=== PATIENT | male | born 1940 | race Caucasian/White ===

== ENCOUNTER 2020-10-03 17:31 | Inpatient (IN) | payer MEDICARE, BC ==
[~2020-10-03] VITALS: Ht 170.2 cm; Wt 42.6 kg
--- NOTE | 2020-10-03 17:46 | NUR ---
bel from [facility] for noted o2 desaturation. PT NON VERBAL, EYES OPEN ONLY. O2 SAT 76% RA. PLACED ON HI FLOW O2 15L PER ERMD, O2 SAT 100%. PLACED ON ROLL CARRIER, SR. WILL CONT TO MONITOR.
--- NOTE | 2020-10-03 18:02 | NUR ---
PER ALMA RN OPEN SOAPER TENDER, LAST COVID TEST AT [facility] WAS 10/01/20Wednesday AND THE RESULT WAS NEGATIVE.
[2020-10-03] MEDS ORDERED: ALBU2.5V38 IH (18:06)
[2020-10-03] MEDS ORDERED: GUAI5SYR PO (18:06)
[2020-10-03] MEDS ORDERED: ACET325T53 PO (18:06)
[2020-10-03] MEDS ORDERED: LORA-259 PO (18:06)
[2020-10-03] MEDS ORDERED: OLAN2.5T3 PO (18:06)
[2020-10-03] MEDS ORDERED: CALC1TAB30 PO (18:06)
[2020-10-03] MEDS ORDERED: MAGN400O6 PO (18:06)
[2020-10-03] MEDS ORDERED: NA P133E RC (18:06)
[2020-10-03] MEDS ORDERED: CLON0.1T PO (18:06)
[2020-10-03] MEDS ORDERED: TAMS-12 PO (18:06)
[2020-10-03] MEDS ORDERED: MAG-55 PO (18:06)
[2020-10-03] MEDS ORDERED: TRAZ-182 PO (18:06)
[2020-10-03 18:08] LABS: BASOPHILS # (AUTO) 0.1 /CMM (0.0-0.2); BASOPHILS % (AUTO) 0.6 % (0.0-2.0); EOSINOPHILS % (AUTO) 1.7 % (0.0-6.0); HEMATOCRIT 47 % (39-51); LYMPHOCYTES % (AUTO) 23.6 % (20.0-44.0); MEAN CORPUSCULAR HGB CONC 32 g/dl (31.0-36.0); MEAN CORPUSCULAR VOLUME 99 fL (80-96); MONOCYTES # (AUTO) 0.7 /CMM (0.1-1.30); MONOCYTES % (AUTO) 7.8 % (2.0-12.0); NEUTROPHILS # (AUTO) 5.8 /CMM (1.8-8.9); NEUTROPHILS % (AUTO) 66.3 % (43.0-81.0); PLATELET COUNT (AUTO) 152 /CMM (150-450); WHITE BLOOD COUNT (AUTO) 8.7 K/uL (4.3-11.0)
[2020-10-03 18:25] LABS: CALCIUM, SERUM 10.3 mg/dL (8.5-10.1); CARBON DIOXIDE 23 mmol/L (21-32); CHLORIDE 117 mmol/L (98-107); CREATININE 2.5 mg/dL (0.6-1.3); GLUCOSE 110 mg/dL (74-106); POTASSIUM 4.3 mmol/L (3.5-5.1); SODIUM SERUM 153 mmol/L (136-145); UREA NITROGEN, BLOOD 75 mg/dL (7-18)
[2020-10-03 18:30] LABS: ALANINE AMINOTRANSFERASE 30 U/L (12-78); ALBUMIN 4.2 g/dL (3.4-5.0); ALKALINE PHOSPHATASE 93 U/L (46-116); ASPARTATE AMINOTRANSFERASE 25 U/L (15-37); B-TYPE NATRIURETIC PEPTIDE 143 PG/ML (0-125); BILIRUBIN,TOTAL 0.4 mg/dL (0.2-1.0); TOTAL PROTEIN, SERUM 9.3 g/dL (6.4-8.2)
[2020-10-03 18:48] LABS: FERRITIN 930 ng/mL (8-388)
[2020-10-03] MEDS ORDERED: VANCOMYCIN 1 GM in IV D5W 250 ML IV ONE (19:00)
[2020-10-03] MEDS ORDERED: IV NS 0.9% 500 ML BAG IV ONE (19:00)
[2020-10-03] MEDS ORDERED: CEFEPIME 1 GM in IV D5W 50 ML IV ONE (19:00)
[2020-10-03] MEDS ORDERED: IV NS 0.9% 1,000 ML IV ONE (19:00)
--- NOTE | 2020-10-03 19:04 | NUR ---
BED 253
[2020-10-03 19:11] LABS: BILIRUBIN,URINE MODERATE (NEGATIVE); BLOOD, URINE Large Ery/uL (NEGATIVE); COLOR,URINE DARK YELLOW (YELLOW); LEUKOCYTE ESTERASE ,URINE Trace (NEGATIVE); NITRITE, URINE Negative (NEGATIVE); PROTEIN,URINE 100 mg/dl (NEGATIVE); UGLUCOSE Negative (NEGATIVE); UROBILINOGEN,URINE 0.2 EU/dL (0.2)
[2020-10-03 19:17] LABS: RBC,URINE 51-80 /HPF (0-2)
[2020-10-03 19:18] LABS: BACTERIA,URINE Moderate /HPF (None Seen); SQUAMOUS EPITHELIAL CELL,UR None Seen /HPF (None Seen)
[2020-10-03] MEDS ORDERED: ZOLPIDEM TARTRATE 5 MG TABLET PO PRN (19:30)
[2020-10-03] MEDS ORDERED: ONDANSETRON HCL/PF 4 MG/2 ML VIAL IVP PRN (19:30)
[2020-10-03] MEDS ORDERED: Z GUARD REMEDY 2 OZ OINT TP PRN (19:30)
[2020-10-03] MEDS ORDERED: ACETAMINOPHEN 325 MG TABLET PO PRN (19:30)
[2020-10-03] MEDS ORDERED: HEPARIN SODIUM, PORCINE 5000 UNITS/1 ML VIAL SQ ONE (19:30)
--- NOTE | 2020-10-03 19:44 | NUR ---
REPORT GIVEN TO CYNTHIA PRAJAPATI FOR LAURA.
[2020-10-03 19:57] LABS: ABG BASE EXCESS -6.2 mmol/L; ABG OXYGEN SATURATION 98.6 % (92.0-98.5); ABG PCO2 32.6 mmHg (35.0-45.0); ABG PH 7.366 (7.350-7.450); AaDO2 108.9 mmHg; COHb 0.2 % (0.5-1.5); MetHb 0.4 % (0.0-1.5); VENT MODE, BG 40L / 55%
[2020-10-03 21:00] VITALS: BP 103/78
--- NOTE | 2020-10-03 21:00 | NUR ---
EARLY MORNING BABYSITTER RCD PT FROM ER [facility] OVERFLOW R/O COVID; DX SEPSIS. NSR ON MONITOR. ON O2 3L NC. PT IS NONVERBAL RESISTANT TO CARE AT TIMES. SACRAL REDNESS AND SCABS TO LEFT FOREARM AND BLE. PENDING WOUND CARE CONS.
[2020-10-03] MEDS: IV NS 0.9% 1,000 ML IV PRN (21:26)
[2020-10-03 22:00] VITALS: BP 97/53
[2020-10-03] MEDS ORDERED: CEFTRIAXONE 1 G VIAL ONE (22:04)
[2020-10-03] MEDS: CEFTRIAXONE 1 G in IV D5W 50 ML IV SCH (22:06)
[2020-10-03 22:09] LABS: BILIRUBIN,DIRECT 0.1 mg/dL (0.0-0.2)
--- NOTE | 2020-10-03 22:30 | NUR ---
PACKAGE DYER PT TO REMAIN NPO D/T DYSPHAGIA; PENDING SWALLOW EVAL.
[2020-10-03 23:00] VITALS: BP 97/53
[2020-10-03] MEDS: BLOOD SUGAR DIAGNOSTIC 1 EACH STRIP IN SCH (23:29)
[2020-10-03] MEDS ORDERED: ALBUTEROL FS 2.5 MG/3 ML VIAL.NEB IH PRN (23:30)
[2020-10-03] MEDS ORDERED: DEXTROSE 50%-WATER 50 ML DISP.SYRIN IV PRN (23:30)
[2020-10-03] MEDS: INSULIN REGULAR, HUMAN 100 UNIT/ML 3 ML VIAL SQ PRN (23:45)
[2020-10-04] VITALS (25 sets, daily range): BP systolic 94–160; BP diastolic 29–98
[2020-10-04] MEDS: BLOOD SUGAR DIAGNOSTIC 1 EACH STRIP IN SCH ×4 (05:14→23:24)
[2020-10-04 05:50] LABS: BASOPHILS % (AUTO) 0.4 % (0.0-2.0); EOSINOPHILS % (AUTO) 5.6 % (0.0-6.0); HEMATOCRIT 33 % (39-51); LYMPHOCYTES # (AUTO) 2.2 /CMM (0.8-4.8); LYMPHOCYTES % (AUTO) 25.3 % (20.0-44.0); MEAN CORPUSCULAR HGB CONC 33 g/dl (31.0-36.0); MEAN CORPUSCULAR VOLUME 95 fL (80-96); MONOCYTES # (AUTO) 0.9 /CMM (0.1-1.30); MONOCYTES % (AUTO) 10.2 % (2.0-12.0); NEUTROPHILS # (AUTO) 5.1 /CMM (1.8-8.9); NEUTROPHILS % (AUTO) 58.5 % (43.0-81.0); PLATELET COUNT (AUTO) 105 /CMM (150-450); RED BLOOD CELL COUNT(AUTO) 3.49 MIL/uL (4.5-6.0); WHITE BLOOD COUNT (AUTO) 8.8 K/uL (4.3-11.0)
[2020-10-04 06:07] LABS: CHOLESTEROL 152 mg/dL (<200); HDL CHOLESTEROL 39 mg/dL (40-60); LDL 96 mg/dL (0-99); TRIGLYCERIDES 83 mg/dL (30-150)
[2020-10-04 06:11] LABS: CALCIUM, SERUM 8.4 mg/dL (8.5-10.1); CARBON DIOXIDE 21 mmol/L (21-32); CHLORIDE 123 mmol/L (98-107); GLUCOSE 82 mg/dL (74-106); MAGNESIUM 2.5 mg/dL (1.8-2.4); PHOSPHORUS 3.5 mg/dL (2.5-4.9); POTASSIUM 3.9 mmol/L (3.5-5.1); SODIUM SERUM 154 mmol/L (136-145); UREA NITROGEN, BLOOD 64 mg/dL (7-18)
[2020-10-04] MEDS: IV NS 0.9% 1,000 ML IV PRN (06:30)
[2020-10-04] MEDS: HYDROCORTISONE SOD SUCCINATE 100 MG/2 ML VIAL IV SCH ×3 (06:30→21:15)
[2020-10-04 06:55] LABS: THYROID STIMULATING HORMONE 3.653 uIU/mL (0.358-3.74)
--- NOTE | 2020-10-04 07:30 | NUR ---
LEGAL RESEARCHER OPENING NOTES RECEIVED PT IN BED, NON VERBAL, BUT ABLE TO RESPOND TO VERBAL AND TACTILE STIMULI BY EYE MOVEMENT. ON 3LPM VIA NC WITH O2 SAT AT 98%. NOT IN ANY ACUTE DISTRESS AT THIS TIME. ON TELE MONITOR WITH READING OF NSR AND HR IN 50s-60s. PT IS NPO DUE TO DYSPHAGIA, AWAITING FOR SWALLOW EVAL. SL IV#18 TO RIGHT WRIST AND SL IV#18 TO LEFT AC, INTACT AND FLUSHED. MD WITH ORDERS TO DC PREVIOUS IV INFUSION, WITH NEW ORDERS OF 0.45 NS RUNNING AT 100ML/HR. SAFETY PRECAUTION OBSERVED. BED KEPT IN LOWEST POSITION. COVID PCR RESULTS PENDING. WILL CONTINUE TO MONITOR.
--- NOTE | 2020-10-04 07:54 | NUR ---
WOUND CARE CONSULT: REVIEWED CHART, NURSING DOCUMENTATION AND PHOTOS WHICH INDICATE SACRAL SCARRING AND DRY SCABS TO EXTREMITIES, PRESENT ON ADMISSION. PT IS VERY THIN AND BONY. RECOMMENDATIONS MADE FOR SKIN PROTECTION. DISCUSSED WITH NURSING STAFF. WILL SEE PRN. ELIAS IN AGREEMENT WITH PLAN OF CARE.
[2020-10-04] MEDS: IV 1/2NS 1000 ML 1,000 ML IV SCH ×2 (08:43→16:36)
--- NOTE | 2020-10-04 11:30 | NUR ---
SENIOR WAREHOUSE CLERK NOTES DR HESTER INFORMED OF RD RECOMMENDATIONS TO START NGT OF GLUCERNA 1.2 VALERIY @ 15ML/HR, AGREED WITH ORDERS NOTED / CARRIED OUT.
[2020-10-04] MEDS ORDERED: GLUCERNA 1.2 1,000 ML BOTTLE NG PRN ×2 (12:00→12:36)
--- NOTE | 2020-10-04 12:29 | NUR ---
WOOD CARVER HAND NOTES 14F NGT INSERTED.
--- NOTE | 2020-10-04 12:36 | NUR ---
MEDICAL BILLING AND CODING SPECIALIST NOTES PT ATTEMPTING TO PULL OUT NGT AFTER PLACEMENT, BILATERAL HAND MITTENS PLACED ORDERED, WILL CONTINUE TO MONITOR SKIN INTEGRITY.
--- NOTE | 2020-10-04 15:40 | NUR ---
ENDORSED TO SIVA SANDERS) FOR LAURA.
--- NOTE | 2020-10-04 16:20 | NUR ---
pt is resting in the bed, alert, does not follows commands, nonverbal, SR, SB, sat well on 3L 02, NG to feeding tolerates well, no BM, v/s stable, no pain, pt cleaned, changed and repositioned.
--- NOTE | 2020-10-04 19:30 | NUR ---
SUPERVISOR PIGMENT MAKING RCD PT W/DX SEPSIS; PT IS ALERT, NONVERBAL; RESISTANT TO CARE SOFT MITTENS IN PLACE TO PREVENT PULLING OF NG TUBE AND IV LINES. PT NSR ON MONITOR. SACRAL SCARRING W/MEPILEX IN PLACE. RIGHT NARE NG TUBE W/GLUCERNA 1.2 @ 15 ML/HR.
[2020-10-04] MEDS: CEFTRIAXONE 1 G in IV D5W 50 ML IV SCH (20:02)
[2020-10-04] MEDS: TAMSULOSIN 0.4 MG CAP.SR.24H PO SCH (21:15)
[2020-10-04] MEDS: INSULIN REGULAR, HUMAN 100 UNIT/ML 3 ML VIAL SQ PRN (23:24)
[2020-10-05] VITALS (45 sets, daily range): BP systolic 69–119; BP diastolic 27–89
[2020-10-05] MEDS: IV 1/2NS 1000 ML 1,000 ML IV SCH (03:10)
[2020-10-05 04:23] LABS: BASOPHILS % (AUTO) 0.1 % (0.0-2.0); HEMATOCRIT 35 % (39-51); HEMOGLOBIN 11.4 g/dL (13.5-17.5); LYMPHOCYTES % (AUTO) 12.1 % (20.0-44.0); MEAN CORPUSCULAR HGB CONC 33 g/dl (31.0-36.0); MEAN CORPUSCULAR VOLUME 96 fL (80-96); MONOCYTES # (AUTO) 0.3 /CMM (0.1-1.30); MONOCYTES % (AUTO) 3.1 % (2.0-12.0); NEUTROPHILS % (AUTO) 84.7 % (43.0-81.0); PLATELET COUNT (AUTO) 104 /CMM (150-450); RED BLOOD CELL COUNT(AUTO) 3.61 MIL/uL (4.5-6.0); WHITE BLOOD COUNT (AUTO) 8.3 K/uL (4.3-11.0)
[2020-10-05 04:47] LABS: ALANINE AMINOTRANSFERASE 23 U/L (12-78); ALBUMIN 2.8 g/dL (3.4-5.0); ALKALINE PHOSPHATASE 68 U/L (46-116); ASPARTATE AMINOTRANSFERASE 26 U/L (15-37); BILIRUBIN,TOTAL 0.2 mg/dL (0.2-1.0); CALCIUM, SERUM 8.7 mg/dL (8.5-10.1); CARBON DIOXIDE 18 mmol/L (21-32); CHLORIDE 118 mmol/L (98-107); CREATININE 1.4 mg/dL (0.6-1.3); GLUCOSE 89 mg/dL (74-106); MAGNESIUM 2.5 mg/dL (1.8-2.4); PHOSPHORUS 3.5 mg/dL (2.5-4.9); SODIUM SERUM 150 mmol/L (136-145); TOTAL PROTEIN, SERUM 6.6 g/dL (6.4-8.2); UREA NITROGEN, BLOOD 59 mg/dL (7-18)
[2020-10-05] MEDS: HYDROCORTISONE SOD SUCCINATE 100 MG/2 ML VIAL IV SCH (05:15)
[2020-10-05] MEDS: BLOOD SUGAR DIAGNOSTIC 1 EACH STRIP IN SCH ×4 (05:15→23:24)
--- NOTE | 2020-10-05 08:19 | NUR ---
received pt from awake overnight counselor, alert, nonverbal, does not follow commands, SB, sat well on 3L 02, NG to feeding tolerates well, v/s stable, no pain, pt turned and repositioned.
[2020-10-05] MEDS: methylPREDNISolone SOD SUCC 40 MG/ML VIAL IV SCH (11:21)
[2020-10-05] MEDS: AZITHROMYCIN 500 MG in IV D5W 250 ML IV SCH (11:21)
[2020-10-05] MEDS: HYDROCODONE/APAP 5/325MG TABLET PO PRN ×2 (11:27→20:03)
--- NOTE | 2020-10-05 13:00 | NUR ---
pt SBP 77- 85, doctor Lili at the bedside, orders received and carried out.
[2020-10-05] MEDS: IV 1/2NS 1000 ML 1,000 ML IV PRN ×2 (13:51→20:05)
--- NOTE | 2020-10-05 16:19 | NUR ---
pt is resting in the bed, alert, non verbal, does not follow commands, SR, RA sat well, tolerates feeding, v/s stable, no pain, pt cleaned, changed and repositioned.
--- NOTE | 2020-10-05 19:00 | NUR ---
RN NOTE RECEIVED PATIENT IN BED, WITH HOB ELEVATED TO 30 DEGREES, OPENS EYES, NON VERBAL. PATIENT IN NO S/SX OF ACUTE DISTRESS AT THIS TIME. PATIENT'S BREATHING IS EVEN AND UNLABORED, SATURATING >95% ON ROOM AIR. PATIENT ON BEDSIDE MONITOR READING SR, HR IS 117. NOTED NASOGASTRIC TUBE AT RIGHT NARE, PLACEMENT WAS CHECKED BY AUSCULTATION, AND ASPIRATION OF GASTRIC CONTENTS, MINIMAL RESIDUAL NOTED, WITH TUBE FEEDING OF GLUCERNA 1.2 REGULATED AT 15 ML/HR. NOTED IV SITE AT LAC G18, PATENT AND FLUSHING WELL, NO S/S OF INFECTION OR INFILTRATION WITH 0.45 NS INFUSING AT 100 ML/HR. SAFETY MEASURES IMPLEMENTED PER PROTOCOL. PATIENT BED ALARM IS ON. HEAD OF BED ELEVATED. BED IS LOCKED, IN LOWEST POSITION AND SIDE RAILS UP. CALL LIGHT WITHIN REACH OF THE PATIENT. WILL CONTINUE TO MONITOR AND REASSESS FOR ANY CHANGES.
[2020-10-05] MEDS: CEFTRIAXONE 1 G in IV D5W 50 ML IV SCH (19:46)
[2020-10-05] MEDS: TAMSULOSIN 0.4 MG CAP.SR.24H PO SCH (21:41)
--- NOTE | 2020-10-05 22:58 | NUR ---
RN NOTE NOTED SBP AT 80'S, TEMPORARILY HELD FEEDING. PLACED PATIENT ON [place] POSITION. RECHECKED BP, 110/66. JANITORIAL SERVICES SUPERVISOR MADE AWARE.
--- NOTE | 2020-10-05 23:23 | NUR ---
RN NOTE PATIENT ASLEEP IN BED, IN STABLE CONDITION. ENDORSED TO JOSE MARIE FOR CONTINUATION OF CARE.
[2020-10-06] VITALS (14 sets, daily range): BP systolic 82–168; BP diastolic 43–96
[2020-10-06 04:35] LABS: EOSINOPHILS % (AUTO) 4.2 % (0.0-6.0); HEMATOCRIT 31 % (39-51); HEMOGLOBIN 10.1 g/dL (13.5-17.5); LYMPHOCYTES # (AUTO) 0.4 /CMM (0.8-4.8); LYMPHOCYTES % (AUTO) 2.9 % (20.0-44.0); MEAN CORPUSCULAR HGB CONC 33 g/dl (31.0-36.0); MEAN CORPUSCULAR VOLUME 96 fL (80-96); MONOCYTES # (AUTO) 0.4 /CMM (0.1-1.30); MONOCYTES % (AUTO) 2.8 % (2.0-12.0); NEUTROPHILS # (AUTO) 12.4 /CMM (1.8-8.9); NEUTROPHILS % (AUTO) 90.1 % (43.0-81.0); PLATELET COUNT (AUTO) 85 /CMM (150-450); RED BLOOD CELL COUNT(AUTO) 3.22 MIL/uL (4.5-6.0); WHITE BLOOD COUNT (AUTO) 13.7 K/uL (4.3-11.0)
[2020-10-06 04:55] LABS: CALCIUM, SERUM 8.1 mg/dL (8.5-10.1); CREATININE 1.1 mg/dL (0.6-1.3); MAGNESIUM 2.2 mg/dL (1.8-2.4); PHOSPHORUS 3.3 mg/dL (2.5-4.9)
[2020-10-06 05:21] LABS: LYMPHOCYTES % (MANUAL) 10 % (16-48); MONOCYTES % (MANUAL) 3 % (0-11.0); NEUTROPHILS % (MANUAL) 87 (42-76)
[2020-10-06] MEDS: IV 1/2NS 1000 ML 1,000 ML IV PRN ×2 (05:57→18:31)
--- NOTE | 2020-10-06 08:00 | NUR ---
BALE BREAKER OPERATOR NOTE PATIENT IN BED NONVERBAL ,ON RA NO SOB NOTED , ON PO STATUS WITH N G TUBE RT NARE IN PLACE, PLACEMENT CHECKED BY AUSCULTATION OF AIR , NO RESIDUAL NOTED AT THIS TIME ,ON N G TUBE FEEDING ORDERED AT 15 ML PER HOUR ,KEEP HOB ELEVATED AT ALL TIME, LT AC HL INTACT AND FLUSHED WELL ,BED IN LOWEST AND LOCKED POSITION, WITH MITTENS RESTRAIN ,STILL TRYING TO REMOVE ALL LINES AND TUBES , WILL CONT TO MONITOR ,BED IN LOWEST AND LOCKED POSITION ,SAFETY MEASURE OBSERVED
[2020-10-06] MEDS: methylPREDNISolone SOD SUCC 40 MG/ML VIAL IV SCH (08:37)
[2020-10-06] MEDS: BLOOD SUGAR DIAGNOSTIC 1 EACH STRIP IN SCH ×4 (08:37→23:21)
[2020-10-06] MEDS ORDERED: ENOXAPARIN SODIUM 40 MG/0.4 ML DISP.SYRIN SQ SCH (09:00)
--- NOTE | 2020-10-06 10:00 | NUR ---
agriculture sales account manager note frequent reposition done ,keep clean dry ,cant give Lovenox due to low platelets, dr cleaning notified ,ok to d\c will f\u
[2020-10-06] MEDS: AZITHROMYCIN 500 MG in IV D5W 250 ML IV SCH (10:22)
[2020-10-06] MEDS: INSULIN REGULAR, HUMAN 100 UNIT/ML 3 ML VIAL SQ PRN (11:46)
--- NOTE | 2020-10-06 12:00 | NUR ---
registered nurse cardiovascular icu note per dietary change to 30 ml per hour , Glucerna via ng tube ,order carried our
--- NOTE | 2020-10-06 13:38 | NUR ---
director nicu note Kamala Pompa at bedside ,patient condition updated
[2020-10-06] MEDS ORDERED: GLUCERNA 1.2 1,000 ML BOTTLE NG PRN (13:43)
--- NOTE | 2020-10-06 14:20 | NUR ---
MACHINE SNELLER NOTE T 95.8 RN POOL CLEANER NIKKI ESPINOSA AWARE OK TO PLACE BARON HUGGER BLANKET PRN
[2020-10-06] MEDS ORDERED: IV NS 0.9% 500 ML IV ONE (16:00)
--- NOTE | 2020-10-06 16:19 | NUR ---
DIE PRESSER NOTE CALLED NIKKI MARIE TAXI SERVICER NOTIFIED BP 82/45 WITH ORDER 500 ML BOLUS OF NS ORDER CARRIED OUT, ONWARM BLANKET STILL T 95.0, WILL MONITOR PER ORDER NIKKI MARIE NP PATIENT DNR \DNI STATUS
--- NOTE | 2020-10-06 17:50 | NUR ---
RN NOTES RECEIVED PT FROM SHIPPER MAR VIA BED, PT IS AWAKE, NON VERBAL, NO SIGN OF PAIN, NOT IN DISTRESS, NG IN PLACE, BEAR HUGGER IN PLACE, IV FLUIDS AND GT FEEDING INFUSING WELL, KEPT WARM AND COMFORTABLE IN BED.
--- NOTE | 2020-10-06 17:50 | NUR ---
agricultural adviser note latest bp after bolus 500 ml of ns 105\76
--- NOTE | 2020-10-06 18:00 | NUR ---
agriculture laboratory technician note transferred to [facility] with stable condition unit room 204 ,report given to natalie rodarte ,
--- NOTE | 2020-10-06 19:30 | NUR ---
MS RN OPENING NOTE RECEIVED PATIENT ON ISOLATION FOR R/O COVID. PATIENT IS RESTING IN BED. PATIENT IS NONVERBAL. TOLERATING ROOM AIR. RESPIRATIONS ARE EVEN AND UNLABORED. NO S/S SOB NOTED. NO S/S PAIN AT THIS TIME. EXTERNAL TELE MONITOR READS SINUS RODRÍGUEZ HR 54. IN NO APPARENT DISTRESS. IV ACCESS IN LAC#18 RUNNING 1/2NS@100. RIGHT NARE NGTUBE NOTED, 68 CM. RUNNING GLUCERNA 1.2@30ML/HR. PATIENT ALSO HAS BARON HUGGER ON. TEMP CURRENTLY 97.7. PATIENT ALSO HAS BILATERAL SOFT MITTENS. BED IS LOW AND LOCKED, HOB ELEVATED IN HIGH FOWLERS, SIDE RIAL SUP X3. CALL LIGHT WITHIN REACH. WILL CONTINUE TO MONITOR.
[2020-10-06] MEDS: CEFTRIAXONE 1 G in IV D5W 50 ML IV SCH (20:09)
[2020-10-06] MEDS: TAMSULOSIN 0.4 MG CAP.SR.24H PO SCH (21:50)
[2020-10-07] VITALS: BP 124/56
[2020-10-07] MEDS: IV 1/2NS 1000 ML 1,000 ML IV PRN ×2 (05:08→18:45)
[2020-10-07] MEDS: BLOOD SUGAR DIAGNOSTIC 1 EACH STRIP IN SCH ×3 (05:47→17:37)
[2020-10-07 06:31] LABS: HEMATOCRIT 33 % (39-51); HEMOGLOBIN 10.9 g/dL (13.5-17.5); LYMPHOCYTES # (AUTO) 1.1 /CMM (0.8-4.8); LYMPHOCYTES % (AUTO) 9.8 % (20.0-44.0); MEAN CORPUSCULAR HGB CONC 33 g/dl (31.0-36.0); MEAN CORPUSCULAR VOLUME 94 fL (80-96); MONOCYTES # (AUTO) 0.7 /CMM (0.1-1.30); MONOCYTES % (AUTO) 6.4 % (2.0-12.0); NEUTROPHILS # (AUTO) 9.6 /CMM (1.8-8.9); NEUTROPHILS % (AUTO) 83.8 % (43.0-81.0); PLATELET COUNT (AUTO) 82 /CMM (150-450); RED BLOOD CELL COUNT(AUTO) 3.48 MIL/uL (4.5-6.0); WHITE BLOOD COUNT (AUTO) 11.4 K/uL (4.3-11.0)
--- NOTE | 2020-10-07 06:39 | NUR ---
MS RN CLOSING NOTE ON ISOLATION FOR R/O COVID 19. CURRENTLY RESTING IN BED. NONVERBAL. TOLERATING ROOM AIR. NO S/S RESP DISTRESS. NO S/S PAIN NOTED. NO DISTRESS. IV ACCESS MAINTAINED IN LAC#18 RUNNING 1/2NS@100ML/HR. MAINTAINED RIGHT NARE NG TUBE, 68 CM RUNNING GLUCERNA 1.2@30ML/HR. BILATERAL SOFT MITTENS MAINTAINED, GOOD CAP REFILL, NO REDNESS. BED REMAINS LOW AND LOCKED, HOB ELEVATED IN HIGH FOWLERS, SIDE RIAL SUP X3. CALL LIGHT WITHIN REACH. WILL ENDORSE TO NEXT SHIFT.
[2020-10-07 06:47] LABS: CALCIUM, SERUM 8.1 mg/dL (8.5-10.1); MAGNESIUM 2.2 mg/dL (1.8-2.4); PHOSPHORUS 2.3 mg/dL (2.5-4.9); POTASSIUM 3.9 mmol/L (3.5-5.1)
--- NOTE | 2020-10-07 07:30 | NUR ---
MS/RN OPENING NOTE Received patient in bed, non-verbal. No s/s of any pain/discomfort at this time. Breathing even and non-labored on RA, no SOB noted. No cardiac distress noted. IV access noted on LAC #18g, patent and intact, and running NS @ 100 ml/hr. Right nare NG tube in place, patent and intact, and running Glucerna 1.2 @30 ml/hr. Bilateral soft mittens in place, since patient is constantly attempts to remove NG tube. Circulation and sensation from both upper extremities intact. Bed locked in its lowest position, side rails x 2 up. Will continue with current medical management.
--- NOTE | 2020-10-07 08:00 | NUR ---
MS/RN NOTE Patient's covid PCR result called to be negative, notified nursing sewage plant supervisor. Awaiting for bed in [facility].
[2020-10-07] MEDS: methylPREDNISolone SOD SUCC 40 MG/ML VIAL IV SCH (08:23)
--- NOTE | 2020-10-07 09:00 | NUR ---
MS/RN NOTE [facility] called for patient's bed ready at 308-1.
[2020-10-07 10:01] LABS: BAND % (MANUAL) 2 % (0.0-5.0); LYMPHOCYTES % (MANUAL) 10 % (16-48); MONOCYTES % (MANUAL) 2 % (0-11.0); NEUTROPHILS % (MANUAL) 86 (42-76)
[2020-10-07] MEDS: NEUTRA PHOS 1 POWD.PACKET PO SCH ×2 (10:19→17:27)
[2020-10-07] MEDS: AZITHROMYCIN 500 MG in IV D5W 250 ML IV SCH (10:19)
--- NOTE | 2020-10-07 11:40 | NUR ---
RN NOTES PATIENT WAS TRANSFERRED TO UNIT AT ROOM 308-1. BEDSIDE ENDORSEMENT DONE W/ THERESA MARIE. WILL CONTINUE TO MONITOR.
[2020-10-07 11:45] VITALS: BP 157/84
--- NOTE | 2020-10-07 11:45 | NUR ---
MS/RN NOTE Patient remained stable, no acute distress noted/ VSS, afebrile, no SOB noted. All needs are met and attended to. Transferred to [facility] along with all hospital documents and chart. Gave report to Akbar MARIE for LAURA.
--- NOTE | 2020-10-07 11:46 | NUR ---
RN NOTES CALLED [employer] FOR FEEDING PUMP.
[2020-10-07] MEDS: INSULIN REGULAR, HUMAN 100 UNIT/ML 3 ML VIAL SQ PRN ×2 (12:25→17:39)
[2020-10-07 14:07] LABS: *SPE ALPHA-1-GLOBULIN 0.2 g/dL (0.0-0.4); *SPE ALPHA-2-GLOBULIN 0.7 g/dL (0.4-1.0); *SPE BETA GLOBULIN 0.9 g/dL (0.7-1.3); *SPE GLOBULIN, TOTAL 3.1 g/dL (2.2-3.9); *SPE M-SPIKE Not Observed g/dL (Not Observed); *SPEGAMMA GLOBULIN 1.3 g/dL (0.4-1.8)
[2020-10-07 16:00] VITALS: BP 126/53
--- NOTE | 2020-10-07 18:59 | NUR ---
MS RN CLOSING NOTES Patient is in bed awake, opens eyes, non-verbal. Breathing even and non-labored, tolerating RA, no respiratory distress noted. IV access on LAC #18g, patent and intact, IVF of 1/2 NS running @ 100 ml/hr. Right nare NG tube in place, intact and patent. Feeding of Glucerna 1.2 @30 ml/hr, infusing well. Bilateral soft mittens in place, circulation checked. Kept clean and dry during the shift. Safety precautions maintained: bed locked and on lowest position, side rails x2 up, call light w/in reach. Will endorse to shift leader RN for ghada.
[2020-10-07 20:00] VITALS: BP 149/70
--- NOTE | 2020-10-07 20:00 | NUR ---
Received report from AM nurse. Patient awake with eyes open, AOX0, non verbal. Patient on room air with no signs of SOB or acute respiratory distress. Breathing even and unlabored. Noted NG tube on right nares, placement and patency checked, infusing Glucerna at 30mL/hr. IV access noted on left AC 18 gauge, patent, no redness, or infiltration, infusing 1/2NS at 100mL/hr. Safety measures in place, bed is in the lowest level, bed is locked, alarm is on, side rails x2, and call light is within reach. Will continue to monitor.
[2020-10-07] MEDS: CEFTRIAXONE 1 G in IV D5W 50 ML IV SCH (20:11)
[2020-10-07] MEDS: TAMSULOSIN 0.4 MG CAP.SR.24H PO SCH (21:30)
--- NOTE | 2020-10-07 23:32 | NUR ---
VTE Score 5. Per Low platelet count, per Dr. Peguero, DC Lovenox.
[2020-10-08] MEDS: BLOOD SUGAR DIAGNOSTIC 1 EACH STRIP IN SCH ×3 (00:17→12:24)
[2020-10-08] MEDS: INSULIN REGULAR, HUMAN 100 UNIT/ML 3 ML VIAL SQ PRN ×2 (00:18→06:49)
--- NOTE | 2020-10-08 06:45 | NUR ---
RN CLOSING NOTE: Patient in bed sleeping comfortably. Patient is breathing even and unlabored. No SOB or acute respiratory distress noted. Safety precaution maintained, bed is in the lowest level, bed is locked, alarm is on, side rails x2 are up, and call light is within reach. Will endorse to AM nurse for continuity of care.
--- NOTE | 2020-10-08 07:25 | NUR ---
MS RN OPENING NOTE RECEIVED PATIENT AWAKE IN BED IN NO ACUTE SIGNS OF DISTRESS. HOB ELEVATED. PATIENT IS NON-VERBAL AND OPEN EYES TO TACTILE STIMULI. NO S/S PAIN LIKE FACIAL GRIMACES OR MOANING NOTED AT THIS TIME. ON ROOM AIR. RESPIRATIONS ARE EVEN AND UNLABORED. IV ACCESS ON LUIS G#22INTACT AND PATENT WITH IVF OF 1/2NS @100ML/HR INFUSING WELL. RIGHT NARE NGT NOTED WITH FEEDING OF GLUCERNA @ 30ML/HR IN PROGRESS, TOLERATING WELL. ASPIRATION PRECAUTIONS MAINTAINED. ALL SAFETY MEASURES MAINTAINED: BILATERAL SOFT MITTENS IN PLACE. BED IS LOW AND LOCKED, SIDE RAILS UP X3. CALL LIGHT WITHIN REACH. WILL CONTINUE TO MONITOR.
[2020-10-08 08:04] VITALS: BP 143/74
[2020-10-08] MEDS: methylPREDNISolone SOD SUCC 40 MG/ML VIAL IV SCH (08:50)
[2020-10-08] MEDS: AZITHROMYCIN 500 MG in IV D5W 250 ML IV SCH (11:03)
--- NOTE | 2020-10-08 14:52 | NUR ---
RN DISCHARGED NOTES PT DISCHARGED FROM [facility] TO [facility] AT [facility] UNDER DR MERINO,. PT IS A/O XO. NON-VERBAL, OPEN EYES TO TACTILE AND VERBAL STIMULI. V/S TAKEN AND RECORDED. PHOTOS OF SKIN ISSUES TAKEN AND FILED ON CHART. PT HAS NO BELONGINGS. IV ACCESS KEPT IN PLACE, PT WILL TAKE MORPHINE DRIP WHILE ON HOSPICE CARE. NGT REMOVED. MD AND CHARGE NURSE FRANCSICO J WEST OF PT'S DISCHARGE TO [facility]..
== END 2020-10-08 14:45 | disposition hospice, inpatient (51) | DRG 871 ==
LOC: ER 17:37 → ICU 19:34 → MEDSG2 10-06 17:43 → MED 10-07 11:40
PROVIDERS: ATTEND Nurse Practitioner Acute Care
DX: A41.9 Sepsis, unspecified organism (principal); J96.01 Acute respiratory failure with hypoxia; G93.41 Metabolic encephalopathy; N17.0 Acute kidney failure with tubular necrosis; E43 Unspecified severe protein-calorie malnutrition; I13.0 Hypertensive heart and chronic kidney disease with heart failure and stage 1 through stage 4 chronic kidney disease, or unspecified chronic kidney disease; N17.9 Acute kidney failure, unspecified; N39.0 Urinary tract infection, site not specified; E87.0 Hyperosmolality and hypernatremia; R64 Cachexia; E11.22 Type 2 diabetes mellitus with diabetic chronic kidney disease; N18.9 Chronic kidney disease, unspecified; N40.0 Benign prostatic hyperplasia without lower urinary tract symptoms; I50.9 Heart failure, unspecified; E86.0 Dehydration; E83.52 Hypercalcemia; E86.1 Hypovolemia; F03.90 Unspecified dementia, unspecified severity, without behavioral disturbance, psychotic disturbance, mood disturbance, and anxiety; I70.0 Atherosclerosis of aorta; R13.10 Dysphagia, unspecified; R62.7 Adult failure to thrive; Z51.5 Encounter for palliative care
CPT/HCPCS: 36415; 36600; 71045-TC; 80048-TC; 80053-TC; 80061-TC; 81001; 82248-TC; 82533; 82728-TC; 82803-TC; 82962-TC; 83540-TC; 83605-TC; 83615-TC; 83735-TC; 83880; 84100-TC; 84155; 84165; 84439-TC; 84443-TC; 84484-TC; 85025-TC; 85730-TC; 86140-TC; 87040-TC; 87081-TC; 87086-TC; 92526; 92611-TC; 93307-TC; G0378; J0456; J0692; J0696; J1644; J1720; J1815; J2920; J3370; J3490; J7030; J7040; J7060; J7120; U0003

== ENCOUNTER 2020-10-08 14:44 | Inpatient (IN) | payer OTHER ==
[~2020-10-08] VITALS: Ht 170.2 cm; Wt 73.5 kg
[~2020-10-08 14:44] MED LIST: ACET325T53 PO; ALBU2.5V38 IH; CALC1TAB30 PO; CLON0.1T PO; GUAI5SYR PO; LORA-259 PO; MAG-55 PO; MAGN400O6 PO; NA P133E RC; OLAN2.5T3 PO; TAMS-12 PO; TRAZ-182 PO
[2020-10-08] MEDS ORDERED: ACETAMINOPHEN SUP SA PATIENTS 650 MG SUPP RC PRN (15:30)
[2020-10-08] MEDS ORDERED: [UNRECOGNIZED DRUG - OTHER] IV PRN ×3 (15:30)
[2020-10-08] MEDS ORDERED: MORPHINE SULFATE IV PRN ×3 (15:30)
--- NOTE | 2020-10-08 16:30 | NUR ---
GEAR CHANGER CARE NOTES PATIENT ADMITTED [facility] UNDER DR MERINO TODAY. A/O X0. OPEN EYES AND RESPONSIVE TO TACTILE AND VERBAL STIMULI. PT ON O2 VIA N/C AT 2LPM, TOLERATING WELL WITH NO SOB NOTED. IV ACCESS NOTED ON LUIS ARM G #22 INTACT, PATENT AND FLUSHES WELL. WILL START MORPHINE DRIP PER MD ORDER. SAFETY MEASURES KEPT IN PLACE: BED IN LOWEST LOCKED POSITION WITH SR UP X2. CALL LIGHT WITHIN REACH. WILL CONTINUE TO MONITOR.
[2020-10-08] MEDS: MORPHINE SULFATE/PF 30 MG in IV NS 0.9% 27 ML IV PRN ×2 (16:54→21:23)
[2020-10-08] MEDS ORDERED: KEY,NONCONTROL,TO KEEP IN PYXI 1 EA MC ONE (16:56)
--- NOTE | 2020-10-08 17:08 | NUR ---
RN notes Pt started on Morphine drip @ 1mg/hr via liseth iv site and witnessed by another RN Akbar. Will continue to monitor.
--- NOTE | 2020-10-08 18:44 | NUR ---
RN CLOSING NOTES PT IN BED AWAKE AND LYING AT MODERATE HIGH BACKREST POSITION. A/O X0. OPEN EYES AND RESPONSIVE TO TACTILE AND VERBAL STIMULI. ON O2 VIA N/C AT 2LPM, TOLERATING WELL WITH NO SOB NOTED. IV ACCESS NOTED ON LUIS ARM G #22 INTACT, PATENT AND FLUSHES WELL. MORPHINE DRIP @ 1MG/HR INFUSING, NO S/S OF INFILTRATIONS AT SITE NOTED. PT TURNED AND REPOSITIONED Q 2HRS AND PRN. ALL NEEDS AND CARE PROVIDED WELL. SAFETY MEASURES KEPT IN PLACE: BED IN LOWEST LOCKED POSITION WITH SR UP X2. CALL LIGHT WITHIN REACH. WILL ENDORSE LAURA TO SPRAY I PAINTER NURSE
--- NOTE | 2020-10-08 19:00 | NUR ---
rn ms opening notes received patient in bed awake eyes open, on 2 l via nc, respirations even and unlabored with equal rise and fall of chest, currently on housekeeper/custodian/laundry worker morphine drip at 1mg/hr. iv site to left upper arm #22g intact and patent, no redness, no infiltration present. remains comfortable, appears free of any pain , distress of sob. safety precautions rendered low bed and locked bed alarm in place , all needs attended at this time, will continue to monitor and attend to needs.
[2020-10-08 20:00] VITALS: BP 149/96
--- NOTE | 2020-10-08 21:23 | NUR ---
rn notes iv morphine in mounted police pump as ordered changed as directed by pharmacy, new bag placed with new tubing. running currently at 1mg/hr. patient remains comfortable no signs pain sob or distress. previous morphine iv bag witnessed and wasted with cayden javier. wasted 32.5 ml. disposed in waste bin in med room. forms signed placed in mounted police log.
--- NOTE | 2020-10-09 06:29 | NUR ---
rn ms closing notes patient in bed sleeping easily arousable mumbles words unable to hold conversation, noted with episodes of being awake and attempting to sit up in bed during shift. on 2 l via nc for comfort tolerated well , respirations even and unlabored at this time, with equal rise and fall of chest, currently on levelman morphine drip at 1mg/hr throughout shift, iv site to left upper arm #22g intact and patent, no redness, no infiltration present. remains comfortable, appears free of any pain , distress or sob. safety precautions rendered low bed and locked bed alarm in place , all needs attended at this time, will continue to monitor and attend to needs and endorse to next shift, tolerated repositioning well, heels offloaded, sacral offloaded. all needs met.
--- NOTE | 2020-10-09 07:30 | NUR ---
RN NOTES PT IN BED, AWAKE, NON VERBAL, NO SIGN OF PAIN OR DISTRESS, MORPHINE DRIP INFUSING ORDERED, REPOSITIONED FOR COMFORT, KEPT WARM AND COMFORTABLE IN BED.
[2020-10-09 08:00] VITALS: BP 138/86
--- NOTE | 2020-10-09 08:02 | NUR ---
RN NOTES PT SEEN BY DR. LOERA, KEPT PT COMFORTABLE.
[2020-10-09] MEDS: MORPHINE SULFATE/PF 30 MG in IV NS 0.9% 27 ML IV PRN ×2 (08:49→20:53)
--- NOTE | 2020-10-09 12:00 | NUR ---
RN NOTES PT IN BED, RESTING, NO SIGN OF PAIN, RESPIRATIONS NORMAL, NO SOB NOTED, MORPHINE DRIP ONGOING, REPOSITIONED FOR COMFORT, KEPT CLEAN AND DRY, WILL CONTINUE TO MONITOR.
[2020-10-09 16:00] VITALS: BP 114/54
--- NOTE | 2020-10-09 18:50 | NUR ---
RN NOTES PT IN BED, RESTING, NOT IN DISTRESS, ON MORPHINE DRIP ORDERED, FAMILY MEMBERS CAME TO VISIT PT, PLAN OF CARE DISCUSSED WITH THEM, VERBALIZED UNDERSTANDING, PM CARE DONE, KEPT CLEAN, DRY AND COMFORTABLE.
--- NOTE | 2020-10-09 19:36 | NUR ---
RN OPENING NOTES PATIENT RECEIVED RESTING IN BED, A/O X 1, NON VERBAL. ON 2L OF WITH BREATHING EVEN AND UNLABORED, NO SOB NOTED. NO SIGNS OF ACUTE DISTRESS. NO SIGNS OF PAIN OR DISCOMFORT. IV LOCATED ON LUIS #22 ON A MORPHINE DRIP @ 1MG/ HR. SAFETY PRECAUTIONS IN PLACE WITH BED IN LOWEST POSITION, BREAKS ON, SIDE RAILS UP. WILL CONTINUE COMFORT MEASURES AND MONITOR THROUGHOUT THE NIGHT.
[2020-10-09 20:00] VITALS: BP 156/91
[2020-10-09 20:28] VITALS: BP 156/91
[2020-10-09] MEDS ORDERED: KEY,NONCONTROL,TO KEEP IN PYXI 1 EA MC ONE (20:46)
--- NOTE | 2020-10-09 21:22 | NUR ---
RN NOTES ADMINISTERED 30 ML MORPHINE AT 1 MG/ HR. PREVIOUS DOSED WASTED OF TOTAL OF 24 ML, WITNESSED BY CYNTHIA BALDERAS.
--- NOTE | 2020-10-10 06:04 | NUR ---
RN NOTES MANUFACTURING TEAM MEMBER PUMP RAMIJO RETURNED TO [facility]
--- NOTE | 2020-10-10 06:39 | NUR ---
RN CLOSING NOTES PATIENT RESTING IN BED, A/O X 1, NON VERBAL. ON 2L OF WITH BREATHING EVEN AND UNLABORED, NO SOB NOTED. NO SIGNS OF ACUTE DISTRESS. NO SIGNS OF PAIN OR DISCOMFORT. IV LOCATED ON LUIS #22 ON A MORPHINE DRIP @ 1MG/ HR. SAFETY PRECAUTIONS IN PLACE WITH BED IN LOWEST POSITION, BREAKS ON, SIDE RAILS UP. ALL NEEDS ATTENDED TO, PATIENT KEPT CLEAN AND DRY, COMFORT MEASURES MANAGED. WILL ENDORSE TO ONCOMING SHIFT ABOUT LAURA.
--- NOTE | 2020-10-10 07:35 | NUR ---
RN MS OPENING NOTES RECEIVED PATIENT RESTING IN BED, A/O X 0, PT WITH DNR/DNI STATUS. NON VERBAL, ON HOSPICE COMFORT CARE WITH MORPHINE DRIP @1MG/HR. PATIENT ON OXYGEN VIA NC @2L, BREATHING EVEN AND UNLABORED, NO SOB NOTED, NO ACUTE RESPIRATORY DISTRESS NOTED. NO SIGNS OF PAIN OR DISCOMFORT. IV LOCATED ON LUIS #[address] WITH BED IN LOWEST POSITION AND LOCKED WITH SIDE RAILS UPX 3 . WILL CONTINUE COMFORT MEASURES AND MONITOR THROUGHOUT SHIFT.
[2020-10-10 08:00] VITALS: BP 99/77
[2020-10-10] MEDS ORDERED: KEY,NONCONTROL,TO KEEP IN PYXI 1 EA MC ONE ×4 (09:11→22:50)
[2020-10-10] MEDS: MORPHINE SULFATE/PF 30 MG in IV NS 0.9% 27 ML IV PRN ×2 (10:05→22:57)
[2020-10-10 16:00] VITALS: BP 151/71
--- NOTE | 2020-10-10 16:00 | NUR ---
RN MS NOTES NOTED PATIENT WITH SOME CONGESTION AND SECRETIONS. ORAL CARE PROVIDED AND ORAL SUCTION PROVIDED. PT NOTED TO BE RESTLESS. CONTACTED HOSPICE CARE. HOSPICE NURSE CAME TO EVAL. NEW ORDERS TO TITRATE MORPHINE 2 MG/ HR VIA IV DRIP FOR PAIN/SOB; COPOLAMINE PATCH 1.5 MG TRANSDERMAL PATCH Q72 HR FOR EXCESSIVE SECRETIONS, ATIVAN 0.5MG IV PUSH Q6HR PRN RESTLESS AND AGITATION. ORDERS FAXED TO PHARMACY.
[2020-10-10] MEDS ORDERED: LORAZEPAM INJ 2 MG/ML VIAL IVP PRN (17:00)
[2020-10-10] MEDS: SCOPOLAMINE PATCH 1 MG/72HR TD SCH (18:21)
--- NOTE | 2020-10-10 18:43 | NUR ---
RN MS CLOSING NOTES PATIENT RESTING IN BED, A/O X 0, PT WITH DNR/DNI STATUS. NON VERBAL, ON HOSPICE/ COMFORT CARE WITH MORPHINE DRIP INCREASED TO 2MG/HR. PATIENT ON OXYGEN VIA NC @2L, FOR COMFORT BREATHING EVEN AND UNLABORED, NO SOB NOTED, NO ACUTE RESPIRATORY DISTRESS NOTED. PT WITH NEW HOSPICE ORDERS IN PLACE. IV LOCATED ON LUIS #[address] WITH BED IN LOWEST POSITION AND LOCKED WITH SIDE RAILS UPX 3 . PATIENT KEPT COMFORTABLE THRU SHIFT. WILL ENDORSE TO ONCARIANNA COCHRAN
[2020-10-10 20:00] VITALS: BP 157/86
--- NOTE | 2020-10-10 20:00 | NUR ---
RN OPENING NOTE: Patient in bed sleeping comfortably. Patient status DNR/DNI, on hospice care. Plan for comfort care. Patient breathing even and unlabored with Oxygen via nasal canula at 2L. No SOB or acute respiratory distress noted. IV access on left upper arm, 22 gauge, patent, no redness, or infiltration, infusing Morphine at 2mg/hr. Safety precaution in place, bed is in the lowest level, bed is locked, alarm is on, side rails x2 are up, and call light is within reach. Will continue to monitor.
--- NOTE | 2020-10-10 22:57 | NUR ---
Patient previous morphine bag completed. Wasted 18mL with night RN, Honey. Administered new morphine drip per MD order. Will continue to monitor.
--- NOTE | 2020-10-11 06:36 | NUR ---
RN CLOSING NOTE: Patient in bed sleeping comfortably. Patient breathing even and unlabored. No SOB or acute respiratory distress noted. Safety measures are maintained, bed is in the lowest level, bed is locked, alarm is on, side rails x2 are up, and call light is within reach. Will endorse to morning nurse.
--- NOTE | 2020-10-11 07:32 | NUR ---
RN OPENING NOTES RECEIVED PATIENT IN BED LYING AT MODERATE HIGH BACKREST. A/O X 0. NON VERBAL, AND ON HOSPICE COMFORT CARE WITH MORPHINE DRIP @2MG/HR IV INFUSING TO LUIS #22G. DNR/DNI STATUS MAINTAINED. ON OXYGEN VIA NC @2L, BREATHING EVEN AND UNLABORED, NO SOB NOTED. SAFETY PRECAUTIONS IN PLACE: BED IN LOWEST POSITION AND LOCKED WITH SIDE RAILS UPX 3. CALL LIGHTIN REACH. WILL CONTINUE COMFORT MEASURES DURING SHIFT.
[2020-10-11] MEDS ORDERED: KEY,NONCONTROL,TO KEEP IN PYXI 1 EA MC ONE ×2 (07:49→20:30)
[2020-10-11] MEDS: MORPHINE SULFATE/PF 30 MG in IV NS 0.9% 27 ML IV PRN ×2 (07:59→20:35)
[2020-10-11 08:00] VITALS: BP 148/91
--- NOTE | 2020-10-11 08:01 | NUR ---
RN NOTES MORPHINE DRIP @ 2MG/HR CHANGED WITH NEW BAG 30ML RUNNING AT SAME RATE AT 0759 AND WITNESSED BY ANOTHER RN CONNIE. WILL CONTINUE TO MONITOR PT'S STATUS.
--- NOTE | 2020-10-11 13:55 | NUR ---
RN NOTES PT VISITED BY THIS AFTERNOON.
[2020-10-11 16:00] VITALS: BP 116/43
--- NOTE | 2020-10-11 18:40 | NUR ---
RN OPENING NOTES PATIENT RECEIVED RESTING IN BED, A/O X 0. ON 2L OF O2 WITH BREATHING EVEN AND UNLABORED. NO SIGNS OF ACUTE DISTRESS. NO SIGNS OF PAIN OR DISCOMFORT. IV LOCATED ON LUIS #22 RUNNING MORPHINE 2 MG/ HR. SAFETY PRECAUTIONS IN PLACE WITH BED IN LOWEST POSITION, BREAKS ON, SIDE RAILS UP. WILL CONTINUE COMFORT CARE.
--- NOTE | 2020-10-11 18:40 | NUR ---
RN CLOSING NOTES PATIENT IN BED LYING AT MODERATE HIGH BACKREST POSITION. A/O X 0. NON-VERBAL AND OPEN EYES TO TACTILE STIMULI. DNR/DNI STATUS MAINTAINED. KEPT ON HOSPICE COMFORT CARE WITH MORPHINE DRIP @ 2MG/HR VIA TAYLOR IV ACCESS. ON OXYGEN VIA NC @2L, BREATHING EVEN AND UNLABORED. SAFETY PRECAUTIONS IN PLACE WITH BED IN LOWEST POSITION AND LOCKED WITH SIDE RAILS UP X 2 . WILL ENDORSE TO SUBSTATION MAINTENANCE TECHNICIAN NURSE TO CONTINUE HOSPICE CARE.
[2020-10-11 20:00] VITALS: BP 120/51
--- NOTE | 2020-10-11 20:40 | NUR ---
NEW MORPHINE DRIP INFUSED ORDERED RUNNING 2MG/ HR. WASTED 10 ML FROM PREVIOUS DRIP- WITNESSED WITH CYNTHIA VASQUEZ.
[2020-10-11 20:55] VITALS: BP 120/51
--- NOTE | 2020-10-12 06:04 | NUR ---
RETURNED CADDY PUMP ARMIJO
--- NOTE | 2020-10-12 06:55 | NUR ---
RN CLOSING NOTES PATIENT RESTING IN BED, A/O X 0. ON 2L OF O2 WITH BREATHING EVEN AND UNLABORED. NO SIGNS OF ACUTE DISTRESS. NO SIGNS OF PAIN OR DISCOMFORT. IV LOCATED ON LUIS #22 RUNNING MORPHINE 2 MG/ HR. SAFETY PRECAUTIONS IN PLACE WITH BED IN LOWEST POSITION, BREAKS ON, SIDE RAILS UP. COMFORT CARE PROVIDED THROUGHOUT THE NIGHT. PATIENT KEPT CLEAN AND DRY. ALL NEEDS ATTENDED TO. WILL ENDORSE TO ONCOMING SHIFT ABOUT LAURA.
--- NOTE | 2020-10-12 07:30 | NUR ---
ms rn received on bed, nonverbal, patient on morphine drip, see meds for settings, appears comfortable,on comfort measures only, will monitor patient.
[2020-10-12 08:00] VITALS: BP 117/67
--- NOTE | 2020-10-12 09:30 | NUR ---
ms rn morning care done, repositioned for comfort.
--- NOTE | 2020-10-12 13:00 | NUR ---
ms rn looks comfortable at this time, at bedside, updated for plans,new morphine bag hang.
[2020-10-12] MEDS ORDERED: KEY,NONCONTROL,TO KEEP IN PYXI 1 EA MC ONE (13:04)
[2020-10-12] MEDS: MORPHINE SULFATE/PF 30 MG in IV NS 0.9% 27 ML IV PRN (13:26)
[2020-10-12 16:00] VITALS: BP 118/47
--- NOTE | 2020-10-12 18:34 | NUR ---
ms rn on bed, no distress noted, all needs attended,no changes at drip rate, looks comfortable at this time.will monitor patient.
[2020-10-12 18:57] VITALS: BP 117/67
--- NOTE | 2020-10-12 19:37 | NUR ---
MS RN NOTES RECEIVED PATIENT RESTING IN BED, ALERT/ORIENTED X 0. ON 2L OF O2 WITH BREATHING EVEN AND UNLABORED. NO SIGNS OF ACUTE RESPIRATORY DISTRESS. NO SIGNS OF PAIN OR DISCOMFORT. IV LOCATED ON LUIS #22 RUNNING MORPHINE 2 MG/ HR. SAFETY PRECAUTIONS IN PLACE BED IN LOWEST POSITION, BREAKS ON, SIDE RAILS UP. ASPIRATION PRECAUTION EMPHASIZED. ALL NEEDS ANTICIPATED. WILL CONTINUE COMFORT CARE.
[2020-10-12 20:00] VITALS: BP 103/55
[2020-10-12 20:36] VITALS: BP 103/55
[2020-10-13] MEDS: MORPHINE SULFATE/PF 30 MG in IV NS 0.9% 27 ML IV PRN ×3 (01:16→18:33)
--- NOTE | 2020-10-13 01:16 | NUR ---
RN NOTES HANG A NEW MORPHINE BAG. PATIENT IS RESTING COMFORTABLY. REPOSITIONED FOR COMFORT. ALL NEEDS ATTENDED. BP 104/49; HR69;RR16;TEMP98.7;SATING 97% AT 2LPM VIA NC.
--- NOTE | 2020-10-13 07:03 | NUR ---
RN NOTES ALL NEEDS ATTENDED AND MET. RESTING COMFORTABLY. NO CHANGES AT DRIP RATE, APPEARS COMFORTABLE AT THIS TIME. WILL ENDORSE TO AM NURSE FOR CONTINUITY OF CARE.
--- NOTE | 2020-10-13 07:57 | NUR ---
MS RN NOTES PATIENT RESTING IN BED, A/O X 0. ON 2L OF NASAL CANNULA NO SIGNS OF ACUTE RESPIRATORY DISTRESS. NO SIGNS OF PAIN OR DISCOMFORT. IV LOCATED ON LUIS #22 RUNNING MORPHINE 2 MG/ HR. SAFETY MEASURES ARE APPLIED. BED IS IN LOWEST LOCKED POSITION WITH SIDE RAILS UP X 2 FOR SAFETY. CALL LIGHT IS WITHIN REACH. WILL CONTINUE TO MONITOR.
--- NOTE | 2020-10-13 12:12 | NUR ---
GAVE REPORT TO CYNTHIA NUÑEZ FOR CONTINUITY OF CARE.
--- NOTE | 2020-10-13 12:26 | NUR ---
RN NOTE PATIENT IN BED RESTING COMFORTABLY. PATIENT IN NO ACUTE DISTRESS. NO SOB NOTED. PATIENT BREATHING IS EVEN AND UNLABORED. PATIENT BED ALARM IS ON. SAFETY PRECAUTIONS IN PLACE. PATIENT BED IS LOCKED AND IN LOWEST POSITION. CALL LIGHT WITHIN REACH. WILL CONTINUE TO MONITOR.
[2020-10-13 16:00] VITALS: BP 95/47
[2020-10-13] MEDS: SCOPOLAMINE PATCH 1 MG/72HR TD SCH (17:26)
--- NOTE | 2020-10-13 19:33 | NUR ---
RN NOTE PATIENT IN BED RESTING COMFORTABLY. PATIENT IN NO ACUTE DISTRESS. NO SOB NOTED. PATIENT BREATHING IS EVEN AND UNLABORED. PATIENT BED ALARM IS ON. SAFETY PRECAUTIONS IN PLACE. PATIENT BED IS LOCKED AND IN LOWEST POSITION. CALL LIGHT WITHIN REACH. WILL ENDORSE CARE TO PM SHIFT FOR LAURA.
--- NOTE | 2020-10-13 19:41 | NUR ---
RN NOTES: RECEIVED REPORT FORM SAVANNAH MARIE. PT ON HOSPICE. RECEIVING MORPHINE DRIP AT 2MG/HR, NEW BAG ADMINISTERED/HANG AT 1833. PT OBTUNDED, ON 2L OXYGEN FOR COMFORT. IV ACCESS PATENT AND FLUSHING WELL. APPEARS COMFORTABLE, CALM, RESPIRATIONS DEEP RR 11. NO FACIAL GRIMACE NOTED. SAFETY PRECAUTIONS FOR FALL INITIATED. WILL MONITOR ACCORDINGLY.
[2020-10-13 20:17] VITALS: BP 115/51
[2020-10-14] VITALS: BP 111/57
[2020-10-14] MEDS ORDERED: KEY,NONCONTROL,TO KEEP IN PYXI 1 EA MC ONE ×2 (06:52→22:12)
[2020-10-14] MEDS: MORPHINE SULFATE/PF 30 MG in IV NS 0.9% 27 ML IV PRN ×2 (06:55→22:14)
--- NOTE | 2020-10-14 06:55 | NUR ---
rn notes: new bag of morphine drip administered cosigned and witnessed by rn clinical quality yoana. previous morphine bag wasted and cosigned by rn clinical quality yoana. wasted amount is 7.8 ml. total volume infused for 12hour warrant server is 22.2 ml.
--- NOTE | 2020-10-14 07:16 | NUR ---
end of shift report: pt remains obtunded. on 3l oxygen via nc, deep shallow respirations. iv access remains patent and flushing well, infusing with morphine drip at 2mg/hrble kept offloaded on pillows. pt appears clam and comfortable, latest rr 8, no facial; grimace noted. kept comfortable. safety precautions for fall remains engaged, call light in reach, will endorse to day rn for ghada.
--- NOTE | 2020-10-14 07:30 | NUR ---
hospice cell changer: notes received pt with eyes open, respiration remains shallow. remains on morphine drip at 2mg/hr. kept comfortable. will continue to monitor.
[2020-10-14 08:00] VITALS: BP 114/44
--- NOTE | 2020-10-14 12:00 | NUR ---
hospice care electronic equipment set up operator: notes no change in pt's condition. remains on morphine drip at 2mg/hr. deonna () called and updated condition.
--- NOTE | 2020-10-14 13:23 | NUR ---
hospice care hand coke drawer: notes deonna () here to visit at this time.
--- NOTE | 2020-10-14 14:00 | NUR ---
hospice care hydrostatic tester: notes rounds made, no longer in the room. pt kept comfortable. remains on morphine drip at 2mg/hr. will continue to monitor.
--- NOTE | 2020-10-14 15:00 | NUR ---
hospice care core shaper: notes respiration abnormally slow and shallow breathing at 8/min. hob elevated. kept comfortable. will continue to monitor.
--- NOTE | 2020-10-14 15:25 | NUR ---
hospice care photo mask pattern generator: notes dedicated ortho rn at bedside at this time.
[2020-10-14 16:00] VITALS: BP 106/58
[2020-10-14 16:37] VITALS: BP 106/58
--- NOTE | 2020-10-14 18:50 | NUR ---
hospice care student life dean: notes respiration abnormally slow and shallow breathing at 8/min. hob elevated. kept comfortable. remains on morphine drip at 2mg/hr. will continue to monitor
--- NOTE | 2020-10-14 19:10 | NUR ---
hospice care rubber stamp maker: notes report given to mago philip) for continuity of care.
--- NOTE | 2020-10-14 19:40 | NUR ---
HOSPICE/RN OPENING NOTES: RECEIVED REPORT FROM KYLEE OLEA. PT IS ON THE BED, DNR/DNI STATUS. ON HOSPICE. RECEIVING MORPHINE DRIP AT 2MG/HR. PT OBTUNDED, ON 3L OXYGEN FOR COMFORT. IV ACCESS PATENT AND FLUSHING WELL. APPEARS COMFORTABLE, CALM, RESPIRATIONS DEEP RR 8. NO FACIAL GRIMACE NOTED. SAFETY PRECAUTIONS FOR FALL INITIATED. WILL MONITOR ACCORDINGLY.
--- NOTE | 2020-10-14 22:14 | NUR ---
HOSPICE/RN NOTES: NEW BAG OF MORPHINE DRIP ADMINISTERED AND WITNESSED BY CYNTHIA ARZOLA. PREVIOUS MORPHINE BAG WASTED AND CO-SIGNED BY CYNTHIA ARZOLA. WASTED AMOUNT IS 15ML.
--- NOTE | 2020-10-15 07:15 | NUR ---
HOSPICE/RN CLOSING NOTES: PT IS ON THE BED, DNR/DNI STATUS. ON HOSPICE. KEPT WARM AND COMFORTABLE IN BED ALL NIGHT. RECEIVING MORPHINE DRIP AT 2MG/HR. PT OBTUNDED, ON 3L OXYGEN FOR COMFORT. IV ACCESS PATENT AND FLUSHING WELL. APPEARS COMFORTABLE, CALM, RESPIRATIONS DEEP RR 9. NO FACIAL GRIMACE NOTED. SAFETY PRECAUTIONS FOR FALL INITIATED. ENDORSED TO DAY SHIFT FOR LAURA.
[2020-10-15] MEDS: MORPHINE SULFATE/PF 30 MG in IV NS 0.9% 27 ML IV PRN ×2 (07:37→23:03)
--- NOTE | 2020-10-15 07:37 | NUR ---
hospice barrel filler head: notes new bag of morphine (mine foreman) hang and verified by 2 rn's. pt remains on mine foreman morphine at 2mg/hr. son at bedside. will continue to monitor.
[2020-10-15 08:00] VITALS: BP 118/56
--- NOTE | 2020-10-15 08:00 | NUR ---
hospice report specialist: notes received pt with eyes open, respiration rate at 8/min, remains shallow. remains on morphine drip at 2mg/hr. kept comfortable. will continue to monitor.
--- NOTE | 2020-10-15 10:00 | NUR ---
hospice care bss solution architect: notes no change in pt's condition. remains on morphine drip at 2mg/hr.
--- NOTE | 2020-10-15 12:00 | NUR ---
hospice care music library assistant: notes no change in pt's condition. remains on morphine drip at 2mg/hr. deonna () called and updated condition.
--- NOTE | 2020-10-15 14:00 | NUR ---
hospice care broadband engineer: notes kept comfortable. hob elevated. continue on oxygen supplementation at 2l/min via n/. rr at 8. remains on morphine drip at 2mg/hr. will continue to monitor.
--- NOTE | 2020-10-15 16:00 | NUR ---
hospice care ranch rider: notes respiration abnormally slow and shallow breathing at 8/min. hob elevated. kept comfortable. remains on morphine drip at 2mg/hr. will continue to monitor
--- NOTE | 2020-10-15 18:10 | NUR ---
hospice supervisor benzene refining: notes pt is having longer pause on respiration at 5 breaths per minute. pt remains comfortable. hob elevated. deonna () notified and updated condition. cn aware. will continue to monitor.
--- NOTE | 2020-10-15 19:00 | NUR ---
hospice care community health consultant: notes report given to mago philip) for continuity of care.
--- NOTE | 2020-10-15 19:46 | NUR ---
HOSPICE/RN OPENING NOTES: RECEIVED REPORT FROM KYLEE OLEA. PT IS HOSPICE PATIENT, DNR/DNI STATUS. RECEIVING MORPHINE DRIP AT 2MG/HR. IV ACCESS PATENT AND FLUSHING WELL. APPEARS COMFORTABLE, CALM, RESPIRATIONS DEEP RR 7. ON 3L OXYGEN FOR COMFORT. NO FACIAL GRIMACE NOTED. SAFETY PRECAUTIONS. BED IN LOW, LOCKED POSITION WITH SR UPX2. HOB ELEVATED. WILL CONTINUE TO MONITOR ACCORDINGLY.
[2020-10-15 20:00] VITALS: BP 126/71
[2020-10-15] MEDS ORDERED: KEY,NONCONTROL,TO KEEP IN PYXI 1 EA MC ONE (22:59)
--- NOTE | 2020-10-15 23:03 | NUR ---
HOSPICE/RN NOTES: NEW BAG OF MORPHINE DRIP ADMINISTERED AND WITNESSED BY CYNTHIA BROOKS, AND CYNTHIA AZEVEDO. PREVIOUS MORPHINE BAG WASTED AND CO-SIGNED BY CYNTHIA BROOKS AND CYNTHIA AZEVEDO. WASTED AMOUNT IS 0.3 ML. PT. RR IS 8, SHALLOW DEEP BREATHING. WILL CONTINUE TO MONITOR.
--- NOTE | 2020-10-16 06:52 | NUR ---
HOSPICE/RN CLOSING NOTES: PT IS ON THE BED, DNR/DNI STATUS. ON HOSPICE. KEPT WARM AND COMFORTABLE IN BED ALL NIGHT. KEPT PT CLEAN AND DRY AT ALL TIMES. RECEIVING MORPHINE DRIP AT 2MG/HR. PT OBTUNDED, ON 3L OXYGEN FOR COMFORT. IV ACCESS PATENT AND FLUSHING WELL. APPEARS COMFORTABLE, CALM, RESPIRATIONS DEEP RR 8. NO FACIAL GRIMACE NOTED. SAFETY PRECAUTIONS FOR FALL IN PLACE. ENDORSED TO DAY SHIFT FOR LAURA.
--- NOTE | 2020-10-16 07:30 | NUR ---
HOSPICE/RN OPENING NOTE Patient is DNR, DNI status, on hospice. Patient non-verbal, eyes are open. Appears calm and comfortable, deep respirations noted at 8. IV access noted on LUSI #22g, patent and intact, and flushing well. On morphine drip at 2 mg/hr. No s/s of pain/discomfort noted. On 3L oxygen via NC, no SOB noted. Bed locked to its lowest position, side rails x 2 up, HOB elevated. Will continue to monitor closely.
[2020-10-16 08:00] VITALS: BP 107/60
[2020-10-16] MEDS: MORPHINE SULFATE/PF 30 MG in IV NS 0.9% 27 ML IV PRN ×3 (10:36→22:09)
--- NOTE | 2020-10-16 12:45 | NUR ---
MS/RN NOTE Patient visited by restaurant mgr, ordered to increase morphine drip to 3 mg/hr. Order carried out, will continue to monitor.
--- NOTE | 2020-10-16 14:02 | NUR ---
HOSPICE/RN NOTE Called and left message to [facility] to request an increase for morphine drip per supercharger mechanic. Addendum: 10/16/20 at 1527 by THERESA WELLINGTON RN CORRECTION: TIME CALLED AT 0930
--- NOTE | 2020-10-16 14:36 | NUR ---
HOSPICE/RN NOTE Increased patient's morphine drip to 3 mg/hr following MD's order along with Christelle RN, label received and scan from pharmacy. Will continue to monitor patient closely.
--- NOTE | 2020-10-16 15:23 | NUR ---
HOSPICE/RN NOTE Patient appears well and comfortable, deep respirations of 12 noted. No s/s of pain/discomfort. Will continue to monitor closely.
[2020-10-16 16:00] VITALS: BP 91/59
[2020-10-16] MEDS: SCOPOLAMINE PATCH 1 MG/72HR TD SCH (17:12)
--- NOTE | 2020-10-16 18:23 | NUR ---
HOSPICE/RN OPENING NOTE Patient non-verbal, eyes are open. All needs met and attended to. Remains calm and comfortable, deep respirations noted at 11. IV access noted on LUIS #22g, patent and intact, and flushing well. On morphine drip at 3 mg/hr. No s/s of pain/discomfort noted. On 3L oxygen via NC, no SOB noted. No output noted today. Fall precautions maintained. Will endorse to fire control assistant nurse.
--- NOTE | 2020-10-16 18:24 | NUR ---
HOSPICE/RN CLOSING NOTE Patient non-verbal, eyes are open. All needs met and attended to. Remains calm and comfortable, deep respirations noted at 11. IV access noted on LUIS #22g, patent and intact, and flushing well. On morphine drip at 3 mg/hr. No s/s of pain/discomfort noted. On 3L oxygen via NC, no SOB noted. No output noted today. Fall precautions maintained. Will endorse to management accounts manager nurse.
--- NOTE | 2020-10-16 19:44 | NUR ---
GMAT TUTOR NOTES PATIENT IN BED, EYE OPEN, NONVERBAL. BREATHING EVEN AND UNLABORED ON 3L NC. SHOWS NO SIGNS OF ACUTE RESPIRATORY DISTRESS, NO ACUTE PAIN. DEEP RESPIRATION AT 12. IV ON LUIS 22G RUNNING MORPHINE AT 3MG/HR. PT REMAIN CALM AND COMFORTABLE. BED IN LOWEST POSITION, LOCKED, AND CALL LIGHT KEPT WITHIN REACH. WILL CONTINUE TO MONITOR.
[2020-10-16 20:00] VITALS: BP 89/58
[2020-10-16] MEDS ORDERED: KEY,NONCONTROL,TO KEEP IN PYXI 1 EA MC ONE (21:54)
[2020-10-17 01:36] VITALS: BP 89/58
--- NOTE | 2020-10-17 06:40 | NUR ---
LITIGATION DOCKET MANAGER NOTES PATIENT IN BED, EYE OPEN, NONVERBAL. BREATHING EVEN AND UNLABORED ON 3L NC. SHOWS NO SIGNS OF ACUTE RESPIRATORY DISTRESS, NO ACUTE PAIN. SLOW DEEP RESPIRATIONS AT 12. IV ON LUIS 22G RUNNING MORPHINE AT 3MG/HR. ALL NEEDS ATTENED TO. ALL DUE MEDICATIONS GIVEN. PT REMAIN CALM AND COMFORTABLE. BED IN LOWEST POSITION, LOCKED, AND CALL LIGHT KEPT WITHIN REACH. WILL ENDORSE TO ONCOMING NURSE.
[2020-10-17 08:00] VITALS: BP 93/55
[2020-10-17] MEDS: MORPHINE SULFATE/PF 30 MG in IV NS 0.9% 27 ML IV PRN ×3 (09:02→18:41)
--- NOTE | 2020-10-17 09:02 | NUR ---
CARPENTER SUPERVISOR NOTE Morphine bag changed to new bag; will continue rate of 3mg/hr. Previous bag had 0ml of medication left. Witnessed with another RN. Patient remains comfortable, RR 12, will continue with hospice care.
--- NOTE | 2020-10-17 15:10 | NUR ---
DIRECTOR OF CORPORATE STRATEGY NOTE Per T.O. from Dr. Sheikh, increase morphine sulfate to 4mg per hour via IV drip. For aura-stroke respiratory rate. Orders carried out. Co-signed with RN. Will continue with hospice care.
[2020-10-17 16:00] VITALS: BP 105/67
[2020-10-17] MEDS ORDERED: KEY,NONCONTROL,TO KEEP IN PYXI 1 EA MC ONE (16:09)
--- NOTE | 2020-10-17 18:44 | NUR ---
HELMET BINDER CLOSING NOTE Patient is resting in bed, a/ox0, opens eyes, non-verbal. Morphine bag changed and IV line changed, continue rate of 4ml/hr. Patient remains comfortable, calm, RR 10. Patient kept clean and dry throughout shift. Bed is in lowest position, side rails x2 in upright position, fall safety and aspiration precautions enforced. Will endorse to classified ad taker for LAURA.
[2020-10-17 20:00] VITALS: BP 90/50
--- NOTE | 2020-10-17 20:00 | NUR ---
RN NOTES RECEIVED PT. SLEEPING COMFORTABLY, ON HOSPICE CARE, ON MORPHINE DRIP , NOT IN DISTRESS, SIDERAILSUPX2, WILL CONTINUE TO MONITOR
[2020-10-17 20:40] VITALS: BP 90/50
[2020-10-18] MEDS ORDERED: KEY,NONCONTROL,TO KEEP IN PYXI 1 EA MC ONE ×3 (02:06→17:07)
[2020-10-18] MEDS: MORPHINE SULFATE/PF 30 MG in IV NS 0.9% 27 ML IV PRN ×3 (02:11→17:29)
--- NOTE | 2020-10-18 07:00 | NUR ---
RN NOTES SLEEPING BUT AROUSABLE, PT. LOOKS COMFORTABLE, NOT IN DISTRESS, PT. NEEDS ATTENDED
--- NOTE | 2020-10-18 07:20 | NUR ---
MS RN NOTES PATIENT EYES CLOSED ARAOUSABLE , APPEARS COMFORTABLE. NO ACUTE DISTRESS NOTED. ON COMFORT CARE, IV ACCESS PATENT AND INTACT,ON MORPHINE DRIP.SAFETY MEASURES IN PLACE. WILL CONTINUE TO MONITOR ACCORDINGLY.
[2020-10-18 08:00] VITALS: BP 96/59
--- NOTE | 2020-10-18 09:51 | NUR ---
MS RN NOTES PER DR MERINO, MORPHINE DRIP AT 4MG/HR.
--- NOTE | 2020-10-18 19:00 | NUR ---
MS RN NOTES PATIENT EYES CLOSED AROUSABLE, APPEARS COMFORTABLE. NO ACUTE DISTRESS NOTED. KEPT COMFORTABLE. IV ACCESS PATENT AND INTACT, ON MORPHINE DRIP. NEEDS ATTENDED AND ANTICIPATED. SAFETY MEASURES IN PLACE. CALL LIGHT WITHIN REACH. WILL ENDORSE TO NIGHT NURSE FOR CONTINUITY OF CARE.
--- NOTE | 2020-10-18 19:22 | NUR ---
INTERNET SYSTEMS ADMINISTRATOR NOTES PATIENT IN BED, EYE CLOSED, APPEARS COMFORTABLE. NO ACUTE DISTRESS NOTED. NO ACUTE PAIN KEPT COMFORTABLE. IV ACCESS PATENT AND INTACT, ON MORPHINE DRIP 4ML/HR. SAFETY PRECAUTIONS IN PLACE. BED IN LOWEST POSITION, LOCKED, AND CALL LIGHT KEPT WITHIN REACH. WILL CONTINUE TO MONITOR.
[2020-10-18 20:00] VITALS: BP 73/44
[2020-10-18 20:31] VITALS: BP 73/44
--- NOTE | 2020-10-18 23:35 | NUR ---
RN NOTES: RECEIVED REPORT FROM DEBARKER OPERATOR NORA, PT APPEARS CALM AND COMFORTABLE, NO FACIAL GRIMACE NOTED, NO SOB NOTED, RESPIRATIONS EVEN AND UNLABORED. IV ACCESS PATENT AND FLUSHING WELL, CURRENTLY RECEIVING MORPHINE DRIP AT 4MG/HR. BLE OFFLOADED ON PILLOWS. WILL CONTINUE MONITORING PT.
--- NOTE | 2020-10-18 23:36 | NUR ---
LINKER UP NOTES RECEIVED PT FROM BHAVNA MARIE FOR LAURA.
[2020-10-19] MEDS ORDERED: KEY,NONCONTROL,TO KEEP IN PYXI 1 EA MC ONE ×2 (00:56→20:16)
--- NOTE | 2020-10-19 06:43 | NUR ---
HOSPICE BEREAVEMENT COORDINATOR NOTES PATIENT IN BED, EYE OPEN, NONVERBAL. BREATHING EVEN AND UNLABORED ON 2L NC. SHOWS NO SIGNS OF ACUTE RESPIRATORY DISTRESS, NO ACUTE PAIN. SLOW RESPIRATIONS AT 12. IV ON LUIS 22G RUNNING MORPHINE AT 4MG/HR. ALL NEEDS ATTENDED TO. ALL DUE MEDICATIONS GIVEN. PT REMAIN CALM AND COMFORTABLE. BED IN LOWEST POSITION, LOCKED, AND CALL LIGHT KEPT WITHIN REACH. WILL ENDORSE TO ONCOMING NURSE.
--- NOTE | 2020-10-19 07:37 | NUR ---
MS/RN Opening note Patient received from shift stacker. Patient admitted to comfort care measures only, DNR/DNI order present and entered into computer. Morphine drip @4ml/hr with no orders to titrate at this time. Appears comfortable, respiration rate 8 breathes a minute. Left upper arm 22g shows no signs of infiltration. Will continue to monitor and ensure comfort.
[2020-10-19 08:00] VITALS: BP 90/48
--- NOTE | 2020-10-19 09:28 | NUR ---
MS/osteopathic medicine teacher update Call received from patient's Shadia, updated as to condition of patient. Asked to speak with doctor, will inform Dr Sheikh and provide with telephone number. Addendum: 10/19/20 at 0933 by SHIRIN DICKERSON Shadia Lim
--- NOTE | 2020-10-19 12:28 | NUR ---
MS/RN Rounds Patient appears comfortable at this time, morphine continues to infuse at 4mg/hr.
--- NOTE | 2020-10-19 15:03 | NUR ---
MS/RN Rate increase Order received from Dr Sheikh to increase morphine drip to 5mg/hr. Order noted and carried out.
--- NOTE | 2020-10-19 17:15 | NUR ---
MS/supervisor fiberglass boat assembly New bag of morphine hung as ordered. Per pharmacist, medication expires at 8p this evening. Will send new bag.
[2020-10-19] MEDS: SCOPOLAMINE PATCH 1 MG/72HR TD SCH (17:42)
--- NOTE | 2020-10-19 17:45 | NUR ---
MS/glass cutter Scopolamine patch changed.
--- NOTE | 2020-10-19 18:16 | NUR ---
MS/RN End note Patient's condition remains unchanged. Morphine drip at 5mg/hr, no order given to titrate from comfort. Bag to be changed at 8p this evening per pharmacy. Will endorse to warehouse supervisor 3rd shift.
[2020-10-19 20:00] VITALS: BP 86/50
--- NOTE | 2020-10-19 21:58 | NUR ---
RN NOTES RECEIVED PATIENT IN HOSPICE CARE, OBTUNDED, MOUTH BREATHER, SHALLOW BREATHING, NOT IN APPARENT DISTRESS, NEW MORPHINE IV BAG ADMINISTERED AT 5 MG/HR, WILL CONTINUE TO MONITOR
--- NOTE | 2020-10-20 06:14 | NUR ---
RN NOTES PATIENT ON HOSPICE, AWAKE, SHALLOW BREATHING, SCANT URINE OUTPUT, WOUND TO SPINE AND COCCYX, MEPILEX APPLIED, MORPHINE DRIP AT 5MG/HR.
--- NOTE | 2020-10-20 07:30 | NUR ---
MS/RN Opening note Patient received from lieutenant shift supervisor. Under the care of Dr Sheikh and [facility]. Morphine drip at 5mg/hr, appears comfortable, in no distress at this time. Will continue to monitor and ensure safety.
[2020-10-20 08:00] VITALS: BP 76/44
--- NOTE | 2020-10-20 08:36 | NUR ---
MS/RN Morphine New morphine bag hung as ordered, infusing @5ml/hr.
--- NOTE | 2020-10-20 13:00 | NUR ---
MS/drip pumper update at bedside and updated as to patients condition.
--- NOTE | 2020-10-20 16:33 | NUR ---
MS/RN S/B Hospice Seen by hospice nurse, order given by Dr Sheikh to hospice to increase morphine drip to 6mg/hr.
--- NOTE | 2020-10-20 18:55 | NUR ---
MS/RN End note Patient's condition remains unchanged. Morphine drip infusing at 6ml/hr.
--- NOTE | 2020-10-20 19:50 | NUR ---
MANAGER PARTY OPENING NOTES RECEIVED PATIENT IN BED, OBTUNDED NON-VERBAL. BREATHING REGULAR AND UNLABORED ON OXYGEN AT 4L/MIN VIA NASAL CANNULA. LEFT UPPER ARM G22 IV LINE INTACT AND PATENT, MORPHINE DRIP INFUSING WELL WITH NO BLEEDING OR S/S OF INFILTRATION NOTED. ON COMFORT MEASURES ONLY. NO S/S OF PAIN/DISCOMFORT NOTED AT THIS TIME. BED LOW AND LOCKED ON LOW FOWLERS POSITION. WILL CONTINUE TO MONITOR.
[2020-10-20 20:00] VITALS: BP 78/45
[2020-10-20] MEDS ORDERED: KEY,NONCONTROL,TO KEEP IN PYXI 1 EA MC ONE (20:38)
--- NOTE | 2020-10-21 | NUR ---
BODYBUILDER NOTES SEEN PULSELESS, NO BREATHING AND MOVEMENT NOTED. PRONOUNCED BY CHARGE NURSE AT 2340. CALLED [facility], SPOKE TO WALTER. PATIENT NOT ELIGIBLE FOR ORGAN DONATION RELEASED CASE# [id number]. [facility] NOTIFIED, PER TAYLOR THEY WILL BE THE ONE TO NOTIFY AND LEFT A NOTE TO CALL THE FAMILY IN THE MORNING. RN TEXTILES SALES REPRESENTATIVE MADE AWARE.
--- NOTE | 2020-10-21 00:30 | NUR ---
ENVIRONMENTAL SAFETY SPECIALIST NOTES POST MORTEM CARE PROVIDED. IV LINE AND DRESSINGS REMOVED. MORPHINE DRIP WASTED WITH 80CC LEFT, WITNESSED BY CHARGE NURSE.
[2020-10-21] MEDS ORDERED: KEY,NONCONTROL,TO KEEP IN PYXI 1 EA MC ONE (00:57)
--- NOTE | 2020-10-21 01:25 | NUR ---
WHARF LABORER NOTES BODY PICKED-UP BY ROCHELLE HOPKINS.
--- NOTE | 2020-10-21 01:30 | NUR ---
LIQUID CHLORINE OPERATOR NOTES NOTIFIED
== END 2020-10-21 01:25 | disposition expired | DRG 871 ==
LOC: HOSPICE 14:44
PROVIDERS: ADMIT Internal Medicine; ATTEND Internal Medicine
DX: A41.9 Sepsis, unspecified organism (principal); J96.01 Acute respiratory failure with hypoxia; N17.0 Acute kidney failure with tubular necrosis; G93.41 Metabolic encephalopathy; R65.21 Severe sepsis with septic shock; E87.0 Hyperosmolality and hypernatremia; J44.1 Chronic obstructive pulmonary disease with (acute) exacerbation; N39.0 Urinary tract infection, site not specified; E87.2 Acidosis; I13.0 Hypertensive heart and chronic kidney disease with heart failure and stage 1 through stage 4 chronic kidney disease, or unspecified chronic kidney disease; E83.52 Hypercalcemia; E86.1 Hypovolemia; F03.90 Unspecified dementia, unspecified severity, without behavioral disturbance, psychotic disturbance, mood disturbance, and anxiety; R62.7 Adult failure to thrive; Z66 Do not resuscitate; Z79.4 Long term (current) use of insulin; E86.0 Dehydration; N18.9 Chronic kidney disease, unspecified; E11.22 Type 2 diabetes mellitus with diabetic chronic kidney disease; N40.1 Benign prostatic hyperplasia with lower urinary tract symptoms; I50.9 Heart failure, unspecified; Z51.5 Encounter for palliative care; F09 Unspecified mental disorder due to known physiological condition
CPT/HCPCS: G0378; J2274; J7050; J7060